=== PATIENT | male | born 1965 | race Caucasian/White ===

== ENCOUNTER 2016-12-13 08:25 | Emergency (ER) | payer BC ==
--- NOTE | ~2016-12-13 | CR63 ---
[facility] A Service [facility] RADIOLOGY TEXT RESULTS PATIENT: YOVANI CODY LOCATION: SED : 63 UNIT #: [id number] AGE: [address]: Yg Walsh MD SEX: M ORDER DR: [id number] [place] [id number] MR#: [id number] Acc #: [id number] NAME: YOVANI CODY. : 1965 SEX: M STUDY DATE/TIME: 12/13/2016 8:01 UNIT: SED ROOM: STUDY DESCRIPTION: CR Chest 2 View Attending Physician: Yg Walsh M.D. Ordering Physician: Yg Walsh M.D. Primary Care Physician: No Primary Care Physician MEDICAL IMAGING REPORT This report is preliminary unless electronic signature is present. EXAM 2 views of the chest. DATE OF EXAM 12/13/2016 COMPARISON October 30, 2015, September 16, 2015, and September 06, 2015, as well as CT chest dated September 06, 2015. INDICATION 51-year-old male with cough, dyspnea and midsternal chest pain for 4 days. History of hypertension, emphysema and COPD. FINDINGS Cardiomediastinal silhouette is within normal limits. There is no evidence of pneumothorax, pleural effusion or definite acute airspace disease. There appears to be a stable area of scarring in the right lower lobe superior segment with stable prominence of the pulmonary interstitium in the lower chest symmetrically bilaterally with findings suggesting emphysema in the upper lobes. IMPRESSION No acute radiographic abnormality. Stable findings of emphysema. Normal heart size. Dictated by... Dereje Javed M.D. THIS IS AN ELECTRONICALLY VERIFIED REPORT Dereje Javed M.D. at 12/16/2016 9:33 AM [facility] A Service [facility] RADIOLOGY TEXT RESULTS PATIENT: YOVANI CODY LOCATION: SED : 63 UNIT #: [id number] AGE: [address]: Yg Walsh MD SEX: M ORDER DR: Kathie TD: 12/13/2016 20:19 JOB #: [id number] MEDICAL IMAGING REPORT Page 1 of 1
[~2016-12-13 08:25] MED LIST: ALBUTEROL17 GM INH; ASPIRIN81 MG PO; CARDIZEM CD120 M1 PO; CIPRO PO; FLOMAX0.4 M1 PO; METOPROLOL SUCC50 MG PO; NO MEDICATIONS; PERCOCET5/325 PO; PHENERGAN25 M1 PO; PREDNISONE PO; ROXICODONE5 MG PO; SYMBICORT INH; VICODIN 5/500 T1 TAB PO
== END 2016-12-13 09:35 | disposition home or self-care (01) ==
LOC: SED 08:25
DX: J40 Bronchitis, not specified as acute or chronic (principal); J44.9 Chronic obstructive pulmonary disease, unspecified; I10 Essential (primary) hypertension; F17.200 Nicotine dependence, unspecified, uncomplicated; Z87.442 Personal history of urinary calculi; Z98.890 Other specified postprocedural states; Z88.0 Allergy status to penicillin; Z88.7 Allergy status to serum and vaccine; Z79.82 Long term (current) use of aspirin; Z79.899 Other long term (current) drug therapy
CPT/HCPCS: 71020; 94640; 99283

== ENCOUNTER 2016-12-15 15:40 | Emergency (ER) | payer BC ==
--- NOTE | ~2016-12-15 | CR72 ---
[facility]. [facility] A Service [facility] RADIOLOGY TEXT RESULTS PATIENT: YOVANI CODY LOCATION: SED : 63 UNIT #: [id number] AGE: [address]: Flip Mcwilliams MD SEX: M ORDER DR: [id number] [place] [id number] E MR#: [id number] Acc #: [id number] NAME: YOVANI CODY. : 1965 SEX: M STUDY DATE/TIME: 12/15/2016 15:28 UNIT: SED ROOM: STUDY DESCRIPTION: CR Chest Single View Portable Attending Physician: Flip Mcwilliams M.D. Ordering Physician: Flip Mcwilliams M.D. Primary Care Physician: Primary Care Physician No MEDICAL IMAGING REPORT This report is preliminary unless electronic signature is present. EXAM Portable chest 1 view, 12/15/2016 COMPARISON Chest radiograph 12/13/2016 HISTORY Cough and short of air for 2 days. FINDINGS Slight increased interstitial opacity medially at the right lung base. Question mild interstitial infiltrate. No apparent effusion, no pneumothorax. Underlying COPD. Dictated by... Lino Bills M.D. THIS IS AN ELECTRONICALLY VERIFIED REPORT Lino Bills M.D. at 12/19/2016 5:05 PM TEV/psc TD: 12/15/2016 22:52 JOB #: [id number] MEDICAL IMAGING REPORT Page 1 of 1
== END 2016-12-15 16:53 | disposition home or self-care (01) ==
LOC: SED 15:40
DX: J44.0 Chronic obstructive pulmonary disease with (acute) lower respiratory infection (principal); J20.9 Acute bronchitis, unspecified; J84.9 Interstitial pulmonary disease, unspecified; F17.210 Nicotine dependence, cigarettes, uncomplicated; Z88.0 Allergy status to penicillin; Z88.8 Allergy status to other drugs, medicaments and biological substances; Z79.899 Other long term (current) drug therapy
CPT/HCPCS: 71010; 94640; 96372; 99284; J1100